=== PATIENT | female | born 1945 | race Caucasian/White ===

== ENCOUNTER → 2016-12-14 | Outpatient (CLI) | payer MEDICARE | END | disposition short-term general hospital (02) | LOC: CLCARD 09:55 | DX: I25.10 Atherosclerotic heart disease of native coronary artery without angina pectoris (principal); I10 Essential (primary) hypertension; E78.5 Hyperlipidemia, unspecified; J44.9 Chronic obstructive pulmonary disease, unspecified; I27.2 Other secondary pulmonary hypertension; E11.9 Type 2 diabetes mellitus without complications ==

== ENCOUNTER → 2017-02-23 | Outpatient (CLI) | payer MEDICARE | END | disposition short-term general hospital (02) | LOC: CLUROL 12:31 | DX: R91.8 Other nonspecific abnormal finding of lung field (principal); C64.2 Malignant neoplasm of left kidney, except renal pelvis; Z90.5 Acquired absence of kidney ==